=== PATIENT | male | born 1945 | race American Indian/Alaskan Native ===

== ENCOUNTER 2018-01-28 07:14 | Outpatient (CLI) | payer OTHER ==
[~2018-01-28 07:14] MED LIST: ASA81 MG PO; GLIPIZIDE5 MG; GLUCOTROL10 MG PO; HYDROCHLOROTH12.5 M1; KETO10TA2 PO; METFORMIN HCL500 MG; PERCOCET 5/321 UDTAB PO; ZESTRIL10 MG PO; ZETIA10 MG
== END 2018-01-28 07:20 | disposition home or self-care (01) ==
LOC: LAB 07:14
DX: D64.89 Other specified anemias (principal); M06.4 Inflammatory polyarthropathy

== ENCOUNTER 2018-01-28 07:47 | Outpatient (CLI) | payer OTHER | END 2018-01-28 07:54 | disposition home or self-care (01) | LOC: NUCLEAR 07:47 | DX: M81.0 Age-related osteoporosis without current pathological fracture (principal) ==

== ENCOUNTER 2018-01-28 08:17 | Outpatient (CLI) | payer OTHER | END 2018-01-28 08:23 | disposition home or self-care (01) | LOC: RAD 08:17 | DX: M19.011 Primary osteoarthritis, right shoulder (principal); M75.111 Incomplete rotator cuff tear or rupture of right shoulder, not specified as traumatic; M75.21 Bicipital tendinitis, right shoulder ==

== ENCOUNTER 2018-02-23 07:36 | Outpatient (CLI) | payer OTHER | END 2018-02-23 08:43 | disposition home or self-care (01) | LOC: LAB 07:36 | DX: N40.0 Benign prostatic hyperplasia without lower urinary tract symptoms (principal); E55.9 Vitamin D deficiency, unspecified; M85.89 Other specified disorders of bone density and structure, multiple sites; E21.2 Other hyperparathyroidism; I10 Essential (primary) hypertension; E88.81 Metabolic syndrome and other insulin resistance; M81.8 Other osteoporosis without current pathological fracture ==